=== PATIENT | female | born 1960 | race Caucasian/White ===

== ENCOUNTER → 2019-11-12 | Outpatient (CLI) | payer OTHER | END | disposition home or self-care (01) | LOC: LAB 12:08 → LAB SHORT 12:08 | DX: D22.72 Melanocytic nevi of left lower limb, including hip (principal) | CPT/HCPCS: 88305 ==

== ENCOUNTER → 2021-07-14 | Outpatient (CLI) | payer OTHER | END | disposition home or self-care (01) | LOC: PLD 07:48 → LAB SHORT 07:48 | DX: D22.5 Melanocytic nevi of trunk (principal) | CPT/HCPCS: 88305 ==